=== PATIENT | male | born 1955 | race Caucasian/White ===

== ENCOUNTER 2023-12-12 17:33 | Outpatient (RCR) | payer MEDICARE, SELFPAY | END 2023-12-12 23:59 | disposition home or self-care (01) | LOC: CRHB 17:33 | PROVIDERS: ATTENDING PHYSICIAN Nuclear Medicine Nuclear Cardiology; FAMILY PHYSICIAN Family Medicine | DX: I25.10 Atherosclerotic heart disease of native coronary artery without angina pectoris (principal); Z95.5 Presence of coronary angioplasty implant and graft | CPT/HCPCS: G0422; G0423 ==

== ENCOUNTER 2023-12-26 17:00 | Outpatient (RCR) | payer MEDICARE, SELFPAY | END 2023-12-26 23:59 | disposition home or self-care (01) | LOC: CRHB 17:00 | PROVIDERS: ATTENDING PHYSICIAN Nuclear Medicine Nuclear Cardiology; FAMILY PHYSICIAN Family Medicine | DX: I25.10 Atherosclerotic heart disease of native coronary artery without angina pectoris (principal); Z95.5 Presence of coronary angioplasty implant and graft | CPT/HCPCS: G0422; G0423 ==

== ENCOUNTER → 2025-01-05 11:17 | Outpatient (REF) | payer MEDICARE, SELFPAY | LOC: HWRCS 11:17 | PROVIDERS: ATTENDING PHYSICIAN Nuclear Medicine Nuclear Cardiology; FAMILY PHYSICIAN Family Medicine | DX: I25.10 Atherosclerotic heart disease of native coronary artery without angina pectoris (principal); I34.0 Nonrheumatic mitral (valve) insufficiency | CPT/HCPCS: 93306 ==